=== PATIENT | male | born 1975 | race Caucasian/White ===

== ENCOUNTER 2017-06-19 13:01 | Emergency (ER) | payer OTHER ==
[~2017-06-19] VITALS: Ht 175.3 cm; Wt 99.0 kg
[~2017-06-19 13:01] MED LIST: ACT/30 PO; ATOR-24 PO; ENAL10TA88 PO; GABA-112 PO; GLIP-199 PO; METF-383 PO; PANT40TA PO; VICODIN PO
[2017-06-19 13:08] VITALS: TEMP 37; Ht 175.3 cm; Wt 99.0 kg
[2017-06-19 14:01] VITALS: O2SAT 95
[2017-06-19] MEDS ORDERED: NVLG SQ (14:11)
[2017-06-19] MEDS ORDERED: GLC/500 PO (14:11)
[2017-06-19] MEDS ORDERED: SODIUM CHLORIDE 0.9% 1000ML 1,000 ML IV STA (14:28)
--- NOTE | 2017-06-19 14:39 | EMERGENCY ROOM VISIT NOTE ---
History Report prepared by Uzair: Lizzeth Viera Under the Supervision of: Dr. Eugenio Estrada M.D. First contact with patient: 14:26 Chief Complaint: STROKE SYMPTOMS Stated Complaint: POSSIBLE STROKE Nursing Triage Summary: Pt states, "Sun I had blurry vision for a little while and was lightheaded. When I called my family dr they said to come here. I was just to [facility] about 1.5 wks ago for chest tightness and they said everything was normal. I have burning in my left leg. Every now and again I do get blurred vision, but it's not like it was on Sun. I have a h/a. I feel more tired lately." Denies unilateral weakness. History of Present Illness The patient is a 41 year old male who presents to the Emergency Room with complaints of stroke symptoms beginning today. The patient states that 2 days ago he suddenly had blurry vision, but that it eventually went away. He reports having no symptoms yesterday but states that he was dizzy, light-headed and had blurry vision today. The patient states that he has never felt this way in the past. He reports that he is diabetic and that his sugar has been about 350 and that it was 259 before he checked in. The patient denies fevers, chills, diarrhea, and recent vomiting. He states that he has had some chest congestion from a sinus infection. The patient also reports having burning in his left leg because he has bursitis of his left hip and has not been able to get a shot in three years. The patient denies recent changes in medications. Source of History: patient Onset: today Position: other (global) Quality: other (stroke symptoms ) Associated Symptoms: + weakness (dizziness, light-headedness), No fevers, No chills, No vomiting, No diarrhea Note: additional symptoms: blurry vision Review of Systems See HPI for pertinent positives & negatives. A total of 10 systems reviewed and were otherwise negative. Past Medical & Surgical Medical Problems: (1) Diabetic peripheral neuropathy associated with type 2 diabetes mellitus (2) Dysesthesia (3) Loss of sensation Family History Cancer Diabetes mellitus FH: heart disease Hypertension Social History Smoking Status: Former Smoker Occupation Status: employed Current/Historical Medications Scheduled Atorvastatin (Lipitor), 40 MG PO QPM Enalapril (Vasotec), 10 MG PO DAILY Glipizide (Glipizide Er), 10 MG PO BID Insulin Aspart (Novolog), UNITS SQ UD Metformin Hcl (Glucophage), 500 MG PO TID Pantoprazole Sodium (Protonix), 40 MG PO DAILY Pioglitazone Hcl (Actos), 30 MG PO DAILY Allergies Coded Allergies: No Known Allergies (Unverified , 06/19/17) Physical Exam Vital Signs Date Time Temp Pulse Resp B/P (MAP) Pulse Ox O2 Delivery O2 Flow Rate FiO2 06/19/17 15:05 100 18 114/74 96 Room Air 06/19/17 14:43 103 112/75 105 131/82 116 115/76 06/19/17 14:01 95 Room Air 06/19/17 14:01 104 18 114/77 97 Room Air 06/19/17 13:58 112 06/19/17 13:08 37.0 117 20 118/73 97 Room Air Physical Exam GENERAL: Patient is in no acute distress. HEENT: No acute trauma, normocephalic atraumatic, mucous membranes dry, no nasal congestion, no scleral icterus. NECK: No stridor, no adenopathy, no meningismus, trachea is midline. LUNGS: Clear to auscultation bilaterally, no wheeze, no rhonchi, breath sounds equal. HEART: Without murmurs gallops or rubs, regular rate and rhythm. ABDOMEN: Soft, nontender, bowel sounds positive, no hernias, no peritonitis. EXTREMITIES: No cyanosis or edema, full range of motion of all the joints without pain or difficulty, no signs for acute trauma. NEUROLOGIC: Oriented x 3, no acute motor or sensory deficits, no focal weakness. No speech slur or facial droop. No pronator drift or cerebellar dysfunction. SKIN: No rash, no jaundice, no diaphoresis. Medical Decision & Procedures ER Provider Diagnostic Interpretation: Radiology results as stated below per my review and radiologist interpretation: HEAD WITHOUT CONTRAST (CT) CLINICAL HISTORY: 41 years-old Male presenting with EVALUATE ALTERED MENTAL STATUS/WEAKNESS. TECHNIQUE: Multidetector CT imaging of the head was performed without the use of intravenous contrast. IV contrast: None. A dose lowering technique was used consistent with the principles of ALARA (as low as reasonably achievable). COMPARISON: None. CT DOSE (mGy.cm): The estimated cumulative dose is 690.05 mGycm. FINDINGS: [employer] topogram: Unremarkable. Ventricles and sulci normal in size. Brain parenchyma normal in appearance with preserved nunez-white differentiation. No mass effect or midline shift. No hemorrhage or acute territorial infarct. No extra-axial fluid collection. Paranasal sinuses and mastoid air cells clear. Calvarium intact. IMPRESSION: 1. No acute intracranial abnormality. Electronically signed by: Remington Chan M.D. 06/19/2017 3:01 PM Dictated Date/Time: 06/19/2017 2:59 PM CHEST ONE VIEW PORTABLE CLINICAL HISTORY: EVALUATE ALTERED MENTAL STATUS/WEAKNESS mental status change COMPARISON STUDY: No previous studies for comparison. FINDINGS: The bones soft tissues and hemidiaphragms are normal. The cardiomediastinal silhouette is normal. The lungs are clear. The pulmonary vasculature is normal. IMPRESSION: Negative chest. The above report was generated using voice recognition software. It may contain grammatical, syntax or spelling errors. Electronically signed by: Ankur Sanches M.D. 06/19/2017 2:55 PM Dictated Date/Time: 06/19/2017 2:55 PM Laboratory Results 06/19/17 13:58 Red Blood Count 5.59, Mean Corpuscular Volume 81.0, Mean Corpuscular Hemoglobin 28.8, Mean Corpuscular Hemoglobin Concent 35.5, Mean Platelet Volume 11.9, Neutrophils (%) (Auto) 53.6, Lymphocytes (%) (Auto) 36.7, Monocytes (%) (Auto) 6.8, Eosinophils (%) (Auto) 1.6, Basophils (%) (Auto) 0.7, Neutrophils # (Auto) 3.72, Lymphocytes # (Auto) 2.54, Monocytes # (Auto) 0.47, Eosinophils # (Auto) 0.11, Basophils # (Auto) 0.05 06/19/17 13:58 Test 06/19/17 13:58 06/19/17 15:12 White Blood Count 6.93 K/uL (4.8-10.8) Red Blood Count 5.59 M/uL (4.7-6.1) Hemoglobin 16.1 g/dL (14.0-18.0) Hematocrit 45.3 % (42-52) Mean Corpuscular Volume 81.0 fL (80-100) Mean Corpuscular Hemoglobin 28.8 pg (25-34) Mean Corpuscular Hemoglobin Concent 35.5 g/dl (32-36) Platelet Count 199 K/uL (130-400) Mean Platelet Volume 11.9 fL (7.4-10.4) Neutrophils (%) (Auto) 53.6 % Lymphocytes (%) (Auto) 36.7 % Monocytes (%) (Auto) 6.8 % Eosinophils (%) (Auto) 1.6 % Basophils (%) (Auto) 0.7 % Neutrophils # (Auto) 3.72 K/uL (1.4-6.5) Lymphocytes # (Auto) 2.54 K/uL (1.2-3.4) Monocytes # (Auto) 0.47 K/uL (0.11-0.59) Eosinophils # (Auto) 0.11 K/uL (0-0.5) Basophils # (Auto) 0.05 K/uL (0-0.2) RDW Standard Deviation 36.9 fL (36.4-46.3) RDW Coefficient of Variation 12.5 % (11.5-14.5) Immature Granulocyte % (Auto) 0.6 % Immature Granulocyte # (Auto) 0.04 K/uL (0.00-0.02) Anion Gap 9.0 mmol/L (3-11) Est Creatinine Clear Calc Drug Dose 133.2 ml/min Estimated GFR () 124.9 Estimated GFR (Non- 107.8 BUN/Creatinine Ratio 17.6 (10-20) Calcium Level 8.9 mg/dl (8.5-10.1) Magnesium Level 1.8 mg/dl (1.8-2.4) Total Bilirubin 0.5 mg/dl (0.2-1) Aspartate Amino Transf (AST/SGOT) 23 U/L (15-37) Alanine Aminotransferase (ALT/SGPT) 55 U/L (12-78) Alkaline Phosphatase 97 U/L (45-117) Total Creatine Kinase 87 U/L (39-308) Troponin I < 0.015 ng/ml (0-0.045) Total Protein 7.4 gm/dl (6.4-8.2) Albumin 3.6 gm/dl (3.4-5.0) Globulin 3.8 gm/dl (2.5-4.0) Albumin/Globulin Ratio 0.9 (0.9-2) Thyroid Stimulating Hormone (TSH) 0.807 uIu/ml (0.300-4.500) Urine Color YELLOW Urine Appearance CLEAR (CLEAR) Urine pH 5.0 (4.5-7.5) Urine Specific [place] 1.033 (1.000-1.030) Urine Protein NEG (NEG) Urine Glucose (UA) 3+ (NEG) Urine Ketones TRACE (NEG) Urine Occult Blood NEG (NEG) Urine Nitrite NEG (NEG) Urine Bilirubin NEG (NEG) Urine Urobilinogen NEG (NEG) Urine Leukocyte Esterase NEG (NEG) Laboratory results reviewed by me. Medications Administered Medications (Trade) Dose Ordered Sig/Alexys Route Start Time Stop Time Status Last Admin Dose Admin Sodium Chloride 1,000 ml @ 999 mls/hr Q1H1M STAT IV 06/19/17 14:28 06/19/17 15:28 DC 06/19/17 14:52 999 MLS/HR ECG Indication: other (stroke symptoms ) Rate (beats per minute): 102 Rhythm: sinus tachycardia Findings: no acute ischemic change, no ectopy Change: Patient's electrocardiogram interpreted by me. ED Course 1427: The patient was evaluated in room A2. A complete history and physical exam was performed. 1428: Ordered Sodium Chloride 1,000 ml @ 999 mls/hr IV. 1520: The patient's orthostatic vital signs showed increase in heart rate consistent with dehydration. 1620: I reevaluated the patient. 1635: Reevaluated the patient. Discussed results and discharge instructions: He verbalized understanding and agreement. The patient is ready for discharge. Medical Decision The patient is a 41 year old male who presents to the ED with complaints of stroke symptoms. Differential diagnoses considered include dehydration, electrolyte imbalance, anemia, infection, stroke, vertigo, and thyroid disorder. There is no leukocytosis or concerning anemia. No significant electrolyte abnormality, kidney failure or hepatitis. The patient appears to be in a euthyroid state. EKG shows a mild sinus tachycardia, no acute ischemia. Cardiac enzyme testing 1 is not consistent with acute cardiac injury. Orthostatic vital signs showed an increase in the heart rate consistent with some dehydration. Chest film does not show pneumonia or pneumothorax. Brain CT shows no acute bleed or mass effect. Urinalysis does not show evidence for infection. The patient received 1 L of IV saline, his heart rate is improved, he is resting much more comfortably. In the room, his heart rate was in the 80s when I discussed his findings. I think the patient is likely feeling poorly from some dehydration. His blood sugars have been elevated lately and this may have led to some dehydration. There are no stroke findings by examination. The patient was reassured by his testing and feeling improved. He was discharged home, if worsening, he will return. Medication Reconcilliation Current Medication List: was personally reviewed by me Blood Pressure Screening Patient's blood pressure: Normal blood pressure Impression Primary Impression: Weakness Additional Impressions: Blurry vision Dehydration Scribe Attestation The scribe's documentation has been prepared under my direction and personally reviewed by me in its entirety. I confirm that the note above accurately reflects all work, treatment, procedures, and medical decision making performed by me. Departure Information Dispostion Home / Self-Care Referrals Martínez Brand M.D. (PCP) Tawanda BenitoD.O. Forms HOME CARE DOCUMENTATION FORM, IMPORTANT VISIT INFORMATION Patient Instructions My [facility] Additional Instructions stay well hydrated as discussed keep a better control of your blood sugars see mariana masters for a follow up this week call orthopedics for an appt for your bursitis return if worsening Stroke History Time Last Known Well 3 days ago Stroke t-PA Criteria Reviewed Does NOT meet criteria for t-PA Reason t-PA Not Given Treatment not indicated Problem Qualifiers
[2017-06-19 14:55] LABS: BASO % 0.7 %; BASO ABS # 0.05 K/uL (0-0.2); EOS % 1.6 %; EOS ABS # 0.11 K/uL (0-0.5); HEMATOCRIT 45.3 % (42-52); HEMOGLOBIN 16.1 g/dL (14.0-18.0); IG# 0.04 K/uL (0.00-0.02); LYMPH % 36.7 %; LYMPH ABS # 2.54 K/uL (1.2-3.4); MEAN CORPUSCULAR HEMOGLOBIN 28.8 pg (25-34); MEAN CORPUSCULAR HGB CONC 35.5 g/dl (32-36); MEAN PLATELET VOLUME 11.9 fL (7.4-10.4); MONO % 6.8 %; MONO ABS # 0.47 K/uL (0.11-0.59); NEUT % 53.6 %; NEUT ABS # 3.72 K/uL (1.4-6.5); PLATELET COUNT 199 K/uL (130-400); RED CELL DISTRIBUTION WIDTH CV 12.5 % (11.5-14.5); RED CELL DISTRIBUTION WIDTH SD 36.9 fL (36.4-46.3); WHITE BLOOD COUNT 6.93 K/uL (4.8-10.8)
--- NOTE | 2017-06-19 14:56 | DIAGNOSTIC IMAGING REPORT ---
CHEST ONE VIEW PORTABLE CLINICAL HISTORY: EVALUATE ALTERED MENTAL STATUS/WEAKNESS mental status change COMPARISON STUDY: No previous studies for comparison. FINDINGS: The bones soft tissues and hemidiaphragms are normal. The cardiomediastinal silhouette is normal. The lungs are clear. The pulmonary vasculature is normal. IMPRESSION: Negative chest. The above report was generated using voice recognition software. It may contain grammatical, syntax or spelling errors. Electronically signed by: Ankur Sanches M.D. 06/19/2017 2:55 PM Dictated Date/Time: 06/19/2017 2:55 PM
--- NOTE | 2017-06-19 15:02 | DIAGNOSTIC IMAGING REPORT ---
HEAD WITHOUT CONTRAST (CT) CLINICAL HISTORY: 41 years-old Male presenting with EVALUATE ALTERED MENTAL STATUS/WEAKNESS. TECHNIQUE: Multidetector CT imaging of the head was performed without the use of intravenous contrast. IV contrast: None. A dose lowering technique was used consistent with the principles of ALARA (as low as reasonably achievable). COMPARISON: None. CT DOSE (mGy.cm): The estimated cumulative dose is 690.05 mGycm. FINDINGS: Hammerer topogram: Unremarkable. Ventricles and sulci normal in size. Brain parenchyma normal in appearance with preserved nunez-white differentiation. No mass effect or midline shift. No hemorrhage or acute territorial infarct. No extra-axial fluid collection. Paranasal sinuses and mastoid air cells clear. Calvarium intact. IMPRESSION: 1. No acute intracranial abnormality. Electronically signed by: Remington Chan M.D. 06/19/2017 3:01 PM Dictated Date/Time: 06/19/2017 2:59 PM
[2017-06-19 15:05] VITALS: BP 114/74; PULSE 100; O2SAT 96
[2017-06-19 15:05] LABS: ALBUMIN 3.6 gm/dl (3.4-5.0); ALKALINE PHOSPHATASE 97 U/L (45-117); ALT/SGPT 55 U/L (12-78); BLOOD UREA NITROGEN 15 mg/dl (7-18); CALCIUM 8.9 mg/dl (8.5-10.1); CARBON DIOXIDE 23 mmol/L (21-32); CREATININE 0.83 mg/dl (0.60-1.40); GLUCOSE 226 mg/dl (70-99); TOTAL PROTEIN 7.4 gm/dl (6.4-8.2)
[2017-06-19 15:08] LABS: POTASSIUM 3.9 mmol/L (3.5-5.1); SODIUM 134 mmol/L (136-145)
[2017-06-19 15:17] LABS: AST/SGOT 23 U/L (15-37)
== END 2017-06-19 16:38 | disposition home or self-care (01) ==
LOC: C.EDB 13:03 → C.EDA 16:38
DX: E86.0 Dehydration (principal); R42 Dizziness and giddiness; H53.8 Other visual disturbances; R53.1 Weakness; E11.40 Type 2 diabetes mellitus with diabetic neuropathy, unspecified; Z79.4 Long term (current) use of insulin; Z79.899 Other long term (current) drug therapy

== ENCOUNTER 2017-12-21 20:27 | Emergency (ER) | payer OTHER ==
[~2017-12-21] VITALS: Ht 175.3 cm; Wt 95.0 kg
[~2017-12-21 20:27] MED LIST changes: -ACT/30 PO; -ATOR-24 PO; +GLC/500 PO; -GLIP-199 PO; -METF-383 PO; +NVLG SQ; -PANT40TA PO; -VICODIN PO
[2017-12-21 20:28] VITALS: TEMP 37.2; Ht 175.3 cm; Wt 95.0 kg
[2017-12-21] MEDS ORDERED: PANT40TA PO (20:42)
[2017-12-21] MEDS ORDERED: ATOR-24 PO (20:44)
[2017-12-21] MEDS ORDERED: SEPTRA DS HOME PACK 1 EA VIAL PO ONE (20:45)
[2017-12-21] MEDS ORDERED: CEPHALEXIN MONOHYDRATE 250 MG CAP PO ONE (20:45)
[2017-12-21] MEDS ORDERED: SULFAMETHOXAZOLE/TRIMETHOPRIM DS 800/160MG TAB PO ONE (20:45)
[2017-12-21] MEDS ORDERED: CEPHALEXIN 500MG HOME PACK 1 EA BTL PO ONE (20:45)
--- NOTE | 2017-12-21 21:23 | DIAGNOSTIC IMAGING REPORT ---
L FOOT MIN 3 VIEWS ROUTINE CLINICAL HISTORY: L plantar 1st MTP wound COMPARISON: None FINDINGS: Extensive vascular calcification is noted. Tarsometatarsal joints are intact. There is no acute fracture, radiopaque foreign body or evidence for osteomyelitis within the left foot by radiography. There may be soft tissue swelling at the level of the left first metatarsophalangeal joint. IMPRESSION: 1. No acute fracture, radiopaque foreign body or evidence for osteomyelitis within the left foot by radiography. 2. Extensive vascular calcification. Electronically signed by: Isaac Nieves M.D. 12/21/2017 9:22 PM Dictated Date/Time: 12/21/2017 9:20 PM
[2017-12-21] MEDS ORDERED: CEPH500C PO (22:40)
[2017-12-21] MEDS ORDERED: SULF800T23 PO (22:40)
--- NOTE | 2017-12-21 22:44 | EMERGENCY ROOM VISIT NOTE ---
ED Visit Note First contact with patient: 20:34 I did evaluate and examine this patient myself. I did guide management for the patient. I agree with the PA's assessment as discussed. Please see the PAs dictation for further details. I did independently review the x-rays. He has an infection to the left foot. He was placed on antibiotics and will follow closely with his doctor.
[2017-12-21 22:50] VITALS: BP 103/70; PULSE 96; O2SAT 96
--- NOTE | 2017-12-22 00:52 | EMERGENCY ROOM VISIT NOTE ---
History First contact with patient: 20:34 Chief Complaint: FOOT PAIN Stated Complaint: L FOOT PAIN, BLISTERS ON THE BOTTOM History of Present Illness The patient is a 42 year old male who presents to the Emergency Room with complaints of a blister on the bottom of his left foot. The patient reports that his son looked at it today and thought that it was turning green and red. The patient does have a history of diabetes. He denies any prior history of diabetic foot ulcers or infections. The patient cannot rule out the possibility of stepping on something. He does wear shoes around the house because of history of diabetes. He rates his discomfort a 7 out of 10 with weightbearing. He has not noticed any foot redness, swelling, red streaks or fever. Tetanus immunization is up-to-date. Review of Systems 10 system review was performed and was negative except for pertinent positives and negatives as indicated in history of present illness Past Medical/Surgical History Medical Problems: (1) Diabetic peripheral neuropathy associated with type 2 diabetes mellitus (2) Dysesthesia (3) Loss of sensation Family History Cancer Diabetes mellitus FH: heart disease Hypertension Social History Smoking Status: Never Smoker Alcohol Use: none Marital Status: single Housing Status: lives alone Occupation Status: employed Current/Historical Medications Scheduled Atorvastatin (Lipitor), 40 MG PO QPM Cephalexin Monohydrate (Keflex), 500 MG PO QID Enalapril (Vasotec), 10 MG PO DAILY Gabapentin (Neurontin), 1 CAP PO BID Insulin Aspart (Novolog), UNITS SQ UD Metformin Hcl (Glucophage), 500 MG PO TID Pantoprazole Sodium (Protonix), 40 MG PO DAILY Sulfa/Trimethoprim (Bactrim Ds 800MG/160MG), 1 TAB PO BID Physical Exam Vital Signs Date Time Temp Pulse Resp B/P (MAP) Pulse Ox O2 Delivery O2 Flow Rate FiO2 12/21/17 22:50 96 18 103/70 96 12/21/17 20:28 37.2 110 16 116/76 95 Room Air Physical Exam CONSTITUTIONAL: Healthy and well nourished. Alert and oriented X 3 with positive affect. Patient does not appear in any acute distress. HEENT: Normocephalic, atraumatic. Pupils equal, round and reactive. NECK: Full active range of motion without discomfort. MUSCULOSKELETAL: Examination of the left foot shows a draining wound over the plantar first MTP region. It is mildly tender to palpation. No obvious foreign body is appreciated. There is some mild purulent drainage. Patient does not have any discomfort with passive range of motion of the first MTP joint. No proximal lymphangitic streaking. Pedal pulses are intact. INTEGUMENTARY: No rash or other significant dermatologic conditions noted. NEUROLOGIC: Patient has decreased sensation of the right foot. Medical Decision & Procedures ER Provider Diagnostic Interpretation: My interpretation of left foot x-ray does not show any obvious radiopaque foreign bodies, fracture or bony lysis. Radiologist report is as follows: L FOOT MIN 3 VIEWS ROUTINE CLINICAL HISTORY: L plantar 1st MTP wound COMPARISON: None FINDINGS: Extensive vascular calcification is noted. Tarsometatarsal joints are intact. There is no acute fracture, radiopaque foreign body or evidence for osteomyelitis within the left foot by radiography. There may be soft tissue swelling at the level of the left first metatarsophalangeal joint. IMPRESSION: 1. No acute fracture, radiopaque foreign body or evidence for osteomyelitis within the left foot by radiography. 2. Extensive vascular calcification. Medications Administered Medications (Trade) Dose Ordered Sig/Alexys Route Start Time Stop Time Status Last Admin Dose Admin Cephalexin Monohydrate (Keflex Cap) 500 mg NOW ONCE PO 12/21/17 20:45 12/21/17 20:46 DC 12/21/17 21:22 500 MG Cephalexin Monohydrate (Keflex 500MG Home Pack) 1 homepack NOW ONCE PO 12/21/17 20:45 12/21/17 20:46 DC 12/21/17 21:48 1 HOMEPACK Trimethoprim/ Sulfamethoxazole (Sulfameth/ Trimeth Ds 800/ 160MG Home Pack) 1 homepack UD ONCE PO 12/21/17 20:45 12/21/17 20:46 DC 12/21/17 21:48 1 HOMEPACK Trimethoprim/ Sulfamethoxazole (Septra Ds 800/ 160MG Tab) 1 tab NOW ONCE PO 12/21/17 20:45 12/21/17 20:46 DC 12/21/17 21:22 1 TAB ED Course Patient history and physical exam were performed. Nurse's notes were reviewed. Vital signs were reviewed and were normal. The patient refused any analgesics on initial exam. Wound cultures were collected from the draining wound. The wound was then cleansed and covered with a bacitracin dressing. The patient reports that he does have crutches at home. X-rays of the left foot were normal. The patient will be provided prescriptions for Keflex and Bactrim DS. He was encouraged to limit weightbearing on the foot until the infection improves. I did encourage him to follow-up with his PCP for recheck in 2-3 days, returning to the emergency department over the weekend for any progressively worsening infection. The patient was happy with plan of care, voiced understanding of all discharge instructions, and denied any significant pain at the conclusion of my exam. The patient was also seen and examined by Dr. Majano, ED attending physician, who agrees with workup and plan of care. Medical Decision Medication Reconcilliation Current Medication List: was personally reviewed by mt Blood Pressure Screening Patient's blood pressure: Normal blood pressure Impression Primary Impression: Cellulitis of left foot Additional Impression: Diabetic neuropathy Departure Information Prescriptions Sulfa/Trimethoprim (Bactrim Ds 800MG/160MG) Tab 1 TAB PO BID for 7 Days, #14 TAB Prov: Heladio Martin PA 12/21/17 Cephalexin Monohydrate (Keflex) 500 Mg Cap 500 MG PO QID for 7 Days, #28 CAP Prov: Heladio Martin PA 12/21/17 Referrals Martínez Brand M.D. (PCP) Patient Instructions My [facility] Problem Qualifiers Additional Impression: Diabetic neuropathy Diabetes mellitus type: type 2 Diabetes mellitus complication detail: diabetic polyneuropathy Qualified Codes: E11.42 - Type 2 diabetes mellitus with diabetic polyneuropathy
== END 2017-12-21 22:50 | disposition home or self-care (01) ==
LOC: C.EDB 20:28 → C.EDD 22:50
DX: L03.116 Cellulitis of left lower limb (principal); E11.42 Type 2 diabetes mellitus with diabetic polyneuropathy; Z79.4 Long term (current) use of insulin

== ENCOUNTER 2024-10-01 01:09 | Inpatient (IN) ==
--- NOTE | 2024-10-01 01:20 | Emergency Department Note ---
History of Present Illness General Chief complaint: Chest Pain Stated complaint: CHEST PAIN, DIAPHORETIC, NAUSEA History of Present Illness This 49-year-old gentleman with a history of COPD and diabetes presents the ER for chest pain. He said intermittent pain all day but more constant tonight. He took nitroglycerin which made the pain worse. He is on Xarelto for unclear etiology. No history of DVT, PE or A-fib. Patient denies fever, chills, cough, congestion, injury to the area, leg pain or swelling, abdominal pain, radiating pain. EMS gave aspirin. Home Medications Medication Instructions Recorded Confirmed Type albuterol sulfate 90 mcg/actuation 2 puff inhalation Q4H PRN 10/01/24 10/01/24 History aerosol inhaler Shortness Of Breath Or Wheezing aspirin 81 mg chewable tablet 81 mg PO HS 10/01/24 10/01/24 History atorvastatin 40 mg tablet 40 mg PO HS 10/01/24 10/01/24 History bupropion HCl 150 mg tablet,12 hr 150 mg PO BID 10/01/24 10/01/24 History sustained-release cholecalciferol (vitamin D3) 1,250 50,000 unit PO WK 10/01/24 10/01/24 History mcg (50,000 unit) capsule cholecalciferol (vitamin D3) 50 250 mcg PO DAILY 10/01/24 10/01/24 History mcg (2,000 unit) capsule (Vitamin D3) metoprolol succinate 25 mg 25 mg PO DAILY 10/01/24 10/01/24 History tablet,extended release 24 hr nitroglycerin 0.4 mg sublingual 0.4 mg sublingual DIRECTED PRN 10/01/24 10/01/24 History tablet (Nitrostat) Chest Pain olmesartan 20 mg tablet 20 mg PO DAILY 10/01/24 10/01/24 History pantoprazole 40 mg tablet,delayed 40 mg PO DAILY 10/01/24 10/01/24 History release rivaroxaban 2.5 mg tablet (Xarelto) 2.5 mg PO BID 10/01/24 10/01/24 History tirzepatide 10 mg/0.5 mL 10 mg subcut WK 10/01/24 10/01/24 History subcutaneous pen injector (Kinsey) Allergies Allergy/AdvReac Type Severity Reaction Status Date / Time No Known Allergies Allergy Verified 10/01/24 01:42 Past Med/Surg History Problem List (Updated 10/01/24 @ 02:06 by Olya Perea PA-C) Acute hyponatremia (Acute) Atypical chest pain (Acute) PVD (peripheral vascular disease) Personal history of diabetic foot ulcer Diabetic peripheral neuropathy associated with type 2 diabetes mellitus Dysesthesia Social History Smoking Status: Never smoker Preferred Language: Bulgarian Review of Systems A total of 10 systems reviewed and were otherwise negative Physical Exam Vital Signs Vital Signs - 24 hr 10/01/24 01:18 10/01/24 01:21 10/01/24 01:27 Temperature 36.6 C Temperature Source Oral Pulse Rate 82 85 84 Pulse Rate from SpO2 Sensor Pulse Rhythm Regular Regular Pulse Strength Normal Respiratory Rate 20 20 Respiratory Effort / Characteristics Non-Labored Spontaneous Respiratory Depth Normal Respiratory Pattern Regular Blood Pressure 142/87 H Blood Pressure Mean 105 Blood Pressure Position Lying Pulse Oximetry 98 98 Oxygen Delivery Method Room Air Room Air Sepsis Recent Fever Within 48 Hours No Sepsis New/Unexplained Change in Mental Status No Sepsis Action Taken by Nursing No Action Required 10/01/24 02:00 Temperature Temperature Source Pulse Rate 82 Pulse Rate from SpO2 Sensor 82 Pulse Rhythm Pulse Strength Respiratory Rate 13 Respiratory Effort / Characteristics Respiratory Depth Respiratory Pattern Blood Pressure 138/82 Blood Pressure Mean 100 Blood Pressure Position Pulse Oximetry 98 Oxygen Delivery Method Sepsis Recent Fever Within 48 Hours Sepsis New/Unexplained Change in Mental Status Sepsis Action Taken by Nursing VITALS: Vitals are noted on the nurse's note and reviewed by myself. Vital signs stable. GENERAL: Pleasant gentleman, in no acute distress, nondiaphoretic, well- developed well-nourished. SKIN: Capillary reflex less than 2 seconds. HEENT: Normocephalic. PERRLA. EOMI. Nares patent. Mucous membranes moist. Neck is supple without nuchal rigidity. HEART: Regular rate and rhythm LUNGS: Clear to auscultation bilaterally without wheezes, rales or rhonchi. No retractions or accessory muscle use. ABDOMEN: Positive bowel sounds x 4. Normal tympanic percussion. Soft, nontender, without masses or organomegaly. Gray sign negative. No guarding or rebound tenderness. no CVA tenderness MUSCULOSKELETAL: No gross musculoskeletal defects. NEURO: Patient was alert and oriented to person place and time. No focal neurological deficits. Course Administered Medications Discontinued Medications Acetaminophen (Ofirmev) 1,000 mg in 100 mls @ 400 mls/hr IV NOW STA Stop: 10/01/24 01:52 Last Infusion: 10/01/24 02:03 Dose: Infused Documented By: Admin: 10/01/24 01:44 Dose: 400 mls/hr Documented By: WENDI Medical Decision Making Medical Records Attestation: I reviewed the patient's medical records. Home Medications Current Medication List: was personally reviewed by me Laboratory Data Attestation: I reviewed the patient's lab results. 10/01/24 01:15 10/01/24 01:15 Lab Results 10/01/24 10/01/24 10/01/24 Range/Units 01:10 01:15 01:18 WBC 10.85 H (4.8-10.8) K/ul RBC 4.55 L (4.70-6.10) M/uL Hgb 13.0 L (14.0-18.0) g/dl POC Hgb 13.3 L (14.0-18.0) g/dl Hct 35.5 L (42.0-52.0) % POC Hct 39 L (42-52) % MCV 78.0 L (80.0-100.0) fL MCH 28.6 (25.0-34.0) pg MCHC 36.6 H (32.0-36.0) g/dL RDW Std Deviation 32.9 L (36.4-46.3) fL RDW Coeff of Georgie 11.7 (11.5-14.5) % Plt Count 288 (130-400) K/uL MPV 10.2 (9.4-12.4) fL Immature Gran % (Auto) 0.5 % Neut % (Auto) 61.2 % Lymph % (Auto) 27.6 % [place] % (Auto) 8.0 % Eos % (Auto) 1.9 % Baso % (Auto) 0.8 % Neut # (Auto) 6.64 H (1.40-6.50) K/uL Lymph # (Auto) 2.99 (1.20-3.40) K/uL [place] # (Auto) 0.87 H (0.11-0.59) K/uL Eos # (Auto) 0.21 (0.00-0.50) K/uL Baso # (Auto) 0.09 (0.00-0.20) K/uL Immature Gran # (Auto) 0.05 (0.01-0.20) K/uL POC Sodium 125 L (135-144) mmol/L Sodium 125 L (136-145) mmol/L POC Potassium 4.2 (3.3-5.0) mmol/L Potassium 4.2 (3.5-5.1) mmol/L POC Chloride 91 L (101-112) mmol/L Chloride 94 L (98-107) mmol/L Carbon Dioxide 22 (21-32) mmol/L POC Total CO2 20 L (24-31) mmol/L Anion Gap 9 (3-11) POC Anion Gap 19.0 (16-25) mmol/L POC BUN 16 (7-18) mg/dl BUN 17 (6-23) mg/dl Creatinine 1.13 (0.6-1.4) mg/dl POC Creatinine 1.2 (0.6-1.3) mg/dl Est Cr Clr Drug Dosing 85.0 ml/min eGFR 78.69 BUN/Creatinine Ratio 15.0 (10-20) Glucose 118 H (70-99(Fasting)) mg/dl POC Glucose (other) 116 H (70-99) mg/dl Osmolality 258 L (280-300) mOsm/kg Calcium 9.3 (8.6-10.3) mg/dl POC Ioniz Calcium Donny 1.18 (1.12-1.32) mmol/l Total Bilirubin 0.7 (0.2-1.0) mg/dl AST 20 (13-39) U/L ALT 19 (7-52) U/L Alkaline Phosphatase 90 (34-104) U/L Troponin I High Sens < 2.3 (0-20) pg/ml Total Protein 7.3 (6.0-8.3) gm/dl Albumin 4.2 (3.4-5.0) gm/dl Globulin 3.1 (2.5-4.0) gm/dl Albumin/Globulin Ratio 1.4 (0.9-2) Lipase 48 (11-82) U/L Imaging Data Attestation: I personally reviewed and interpreted this imaging study as follows: MDM Narrative Prior records/ancillary studies reviewed. Triage Nursing notes reviewed. Additional history obtained from EMS. The patient's history was concerning for chest pain. Differential diagnosis: Etiologies such as cardiac ischemia, aortic dissection, pulmonary embolism, pneumonia, pneumothorax, musculoskeletal, infections, pericarditis, myocarditis, esophageal rupture, gastrointestinal, as well as others were entertained. Physical examination: As above. ER treatment provided: An order was placed for continuous cardiac monitoring. The monitor shows a rate of 60-100 with a sinus rhythm per my interpretation. Fluids On reassessment the patient felt better. Diagnostic interpretation by me: #1 the electrocardiogram was negative for pathologic change. Ordered for chest pain EKG: Poor baseline, normal sinus, no acute ST-T wave changes. Impression normal sinus rhythm poor baseline independently interpreted by myself I think arrhythmia is unlikely. EKG shows normal sinus rhythm with no interval abnormalities such as QT prolongation or WPW. There are no findings to suggest Brugada syndrome. Cardiac monitoring in the emergency department reveals no tachycardic or bradycardic dysrhythmia. Hypertrophic cardiomyopathy was considered but there are no clear historical elements pointing toward this. EKG is not suggestive. The QRS voltage is not extremely large and there are no suggestive Q waves. #2 EKG ordered for chest pain EKG: Normal sinus, normal intervals, no acute ST-T wave changes. Impression normal sinus rhythm independently interpreted by myself The labs Independently Interpreted by myself revealed hyponatremia and osmolarity levels were ordered Negative troponin Imaging studies: Chest x-ray with no acute consolidation, pneumothorax or free air per my independent interpretation HEART SCORE: Hx: high/mod/low suspicion: 1 ECG: ST depression/nonspecific changes/normal: 0 Age: Greater than 65/45-64/less than 45: 1 Risk factors: (Hypertension, hyperlipidemia, diabetes, coronary disease, tobacco use, cocaine use): 1 Troponin: Greater than 2 times normal limits/1-2 times normal limits/normal: 0 Total: 3 Consultation: A consultation was placed with the hospitalist. The case was discussed and diagnostics were reviewed. The patient was evaluated in the ER for further treatment. Exam and history seem consistent with chest pain with low sodium. Osmolarity levels were sent. 2 EKGs were negative. First troponin is negative. Patient is on Xarelto so unlikely for PE. Medicine was consulted case discussed. He will be evaluated for admission. By the evaluation outlined above emergent etiologies such as cardiac ischemia, aortic dissection, pulmonary embolism, pneumonia, pneumothorax, infections, pericarditis, myocarditis, gastrointestinal, as well as others were deemed relatively unlikely. The pt informed about the findings as listed above. All questions were answered and pleased with the treatment. The chart was completed utilizing [employer] Speech voice recognition software. Grammatical errors, random word insertions, pronoun errors, and incomplete sentences are an occassional consequence of this system due to software limitations, ambient noise, and hardware issues. Any formal questions or concerns about the content, text, or information contained within the body of this dictation should be directly addressed to the physician medical staff assistant for clarification. Impression & Plan Atypical chest pain, Acute hyponatremia Discharge Plan Visit Data Chief Complaint: Chest Pain Stated Complaint: CHEST PAIN, DIAPHORETIC, NAUSEA ED Provider: Tresa Gutierrez ED Midlevel Provider: Olya Perea Discharge Problem: Atypical chest pain, Acute hyponatremia Patient Disposition: Being Evaluated by Hospitalist Condition: Good Forms Stand Alone Forms: My [facility] Prescriptions Prescriptions: No Action atorvastatin 40 mg tablet 40 mg PO HS bupropion HCl 150 mg tablet sustained-release 12 hr 150 mg PO BID pantoprazole 40 mg tablet,delayed release (DR/EC) 40 mg PO DAILY nitroglycerin [Nitrostat] 0.4 mg Tablet, Sublingual 0.4 mg sublingual DIRECTED PRN (Reason: Chest Pain) aspirin 81 mg Tablet,Chewable 81 mg PO HS metoprolol succinate 25 mg tablet extended release 24 hr 25 mg PO DAILY albuterol sulfate 90 mcg/actuation HFA aerosol inhaler 2 puff INHALATION Q4H PRN (Reason: Shortness Of Breath Or Wheezing) olmesartan 20 mg tablet 20 mg PO DAILY cholecalciferol (vitamin D3) 1,250 mcg (50,000 unit) capsule 50,000 unit PO WK Rx Instructions: SUNDAYS cholecalciferol (vitamin D3) [Vitamin D3] 50 mcg (2,000 unit) Capsule 250 mcg PO DAILY rivaroxaban [Xarelto] 2.5 mg tablet 2.5 mg PO BID Mounjaro 10 mg/0.5 mL pen injector 10 mg SUBCUT WK Rx Instructions: SUNDAYS Referrals Referrals: Jackie Huang PA-C [Primary Care Provider] -
[2024-10-01 01:29] LABS: iSTAT Creatinine 1.2 mg/dl (0.6-1.3); iSTAT Hemoglobin 13.3 g/dl (14.0-18.0); iSTAT Ionized Calcium 1.18 mmol/l (1.12-1.32); iSTAT Potassium 4.2 mmol/L (3.3-5.0)
[2024-10-01 01:33] LABS: Basophils # (auto) 0.09 K/uL (0.00-0.20); Basophils % (auto) 0.8 %; Eosinophils # (auto) 0.21 K/uL (0.00-0.50); Eosinophils % (auto) 1.9 %; Hematocrit (blood only) 35.5 % (42.0-52.0); Immature Granulocytes # (auto) 0.05 K/uL (0.01-0.20); Immature Granulocytes % (auto) 0.5 %; Lymphocytes # (auto) 2.99 K/uL (1.20-3.40); Lymphocytes % (auto) 27.6 %; Mean Corpuscular Hemoglobin 28.6 pg (25.0-34.0); Mean Corpuscular Hgb Conc 36.6 g/dL (32.0-36.0); Mean Platelet Volume 10.2 fL (9.4-12.4); Monocytes # (auto) 0.87 K/uL (0.11-0.59); Neutrophils # (auto) 6.64 K/uL (1.40-6.50); Neutrophils % (auto) 61.2 %; Platelet Count 288 K/uL (130-400); RDW Coefficient of Variation 11.7 % (11.5-14.5); RDW Standard Deviation 32.9 fL (36.4-46.3); Red Blood Count 4.55 M/uL (4.70-6.10); White Blood Count 10.85 K/ul (4.8-10.8)
[2024-10-01] MEDS: ACETAMINOPHEN 1,000 MG/100 ML VIAL IV STA (01:44)
[2024-10-01 01:49] LABS: Alanine Aminotransferase 19 U/L (7-52); Albumin Globulin Ratio 1.4 (0.9-2); Albumin Level 4.2 gm/dl (3.4-5.0); Alkaline Phosphatase 90 U/L (34-104); Anion Gap 9 (3-11); Aspartate Aminotransferase 20 U/L (13-39); Bilirubin,Total 0.7 mg/dl (0.2-1.0); Blood Urea Nitrogen 17 mg/dl (6-23); Calcium 9.3 mg/dl (8.6-10.3); Carbon Dioxide 22 mmol/L (21-32); Chloride 94 mmol/L (98-107); Globulin 3.1 gm/dl (2.5-4.0); Glucose 118 mg/dl (70-99(Fasting)); Lipase 48 U/L (11-82); Potassium 4.2 mmol/L (3.5-5.1); Sodium 125 mmol/L (136-145); Total Protein 7.3 gm/dl (6.0-8.3)
[2024-10-01 01:56] LABS: Troponin I High Sensitivity < 2.3 pg/ml (0-20)
[2024-10-01] MEDS: SODIUM CHLORIDE 0.9% 1,000 ML IV ONE (02:11)
[2024-10-01] MEDS ORDERED: ACETAMINOPHEN 325 MG TAB PO PRN (02:17)
[2024-10-01] MEDS ORDERED: oxyCODONE HCL IR 5 MG TAB (IMMEDIATE RELEASE) PO PRN (02:17)
--- NOTE | 2024-10-01 02:32 | XRay Report ---
EXAM: XR chest 1V portable CLINICAL HISTORY: Chest pain, nonspecific TECHNIQUE: An X-ray image of the chest is obtained in AP projection. COMPARISON: No prior studies are available for comparison. FINDINGS: Pulmonary Parenchyma: Lungs are clear bilaterally. No evidence of consolidation, collapse, or focal opacities. No pulmonary nodules are identified. No evidence of pleural effusion or pleural thickening. Heart and Mediastinum: Heart size and shape are normal. No mediastinal widening or masses. No hilar or mediastinal lymphadenopathy. Bony Thorax: Bony thorax appears intact without fractures or deformities. Soft Tissues: Chest leads seen. Soft tissues overlying the chest wall are unremarkable. IMPRESSION: Normal chest X-ray. No acute cardiopulmonary abnormalities are identified. Electronically signed by Damaso Guerrero 10-01-2024 02:31 AM
[2024-10-01 02:41] LABS: Magnesium 1.4 mg/dl (1.7-2.4)
[2024-10-01 02:45] LABS: Thyroid Stimulating Hormone 3.853 uIu/ml (0.300-4.500)
--- NOTE | 2024-10-01 02:52 | Emergency Department Note ---
ED Visit Note I was consulted by the Advanced Practice Provider. I approved the management plan and take responsibility for the patient management. This includes the aspects of: -History/Physical -MDM -I independently interpreted the following studies:Studies and results .
--- NOTE | 2024-10-01 03:02 | History & Physical Report ---
Date of Service October 01, 2024 Assessment & Plan (1) Chest pain: Plan: Chest pain Possible unstable angina given nitroglycerin relief hx PVD status post surgery on Xarelto Hypoosmolar hyponatremia possibly from polydipsia New onset anemia, possibly dilutional from hyponatremia, FOBT done at the ER was negative hypertension, stable hyperlipidemia, on statin Rx DM2 on Mounjaro, well-controlled as of outpatient hemoglobin A1c of 5.1 2022 Hypomagnesemia Admit to PCU Continue aspirin, beta-viktor, statin Rx Follow troponin TTE, Cardiology consult re: chest pain N.p.o. in anticipation of ischemic workup Hold Xarelto until patient seen by Cardiology Hyponatremia workup, may need fluid restriction if workup consistent with polydipsia Recheck serum sodium after initial fluid bolus administered at the ER Replace electrolytes ISS BG goal 110-140, update hemoglobin A1c DVT prophylaxis. Xarelto if okay with cardiology Full code Text document was generated using [employer] voice recognition software. It may contain grammatical or spelling errors. Kindly contact undersigned for clarification of any documentation item in question. History of Present Illness Chief Complaint: Chest pain Primary Care Provider: Scotty Huang MD History obtained from patient and records. Medical history significant for PVD status post surgery on Xarelto, hypertension, hyperlipidemia, DM2 on Mounjaro, urolithiasis, colonic polyps, mood disorder. Patient experienced substernal pain yesterday with some shortness of breath. Nonpleuritic as per patient. Different from left-sided chest pain which he usually gets attributed to gas. Associated diaphoresis symptoms. No unusual cough symptoms. Some improvement of substernal tightness with nitro Rx at home. Patient compliant with home medications. No unusual stress. Denies abdominal pain, black/bloody stools, hematuria. Usual consumption of about 80 ounces of fluid every day as per patient. Medical History as above Surgical History : Knee surgery, cholecystectomy, vascular procedures, hand surgery Family History : DM, colon cancer Personal/Social history : Non-smoker, no EtOH intake, disabled Allergies Allergy/AdvReac Type Severity Reaction Status Date / Time No Known Allergies Allergy Verified 10/01/24 01:42 Home Medications Medication Instructions Recorded Confirmed Type albuterol sulfate 90 mcg/actuation 2 puff inhalation Q4H PRN 10/01/24 10/01/24 History aerosol inhaler Shortness Of Breath Or Wheezing aspirin 81 mg chewable tablet 81 mg PO HS 10/01/24 10/01/24 History atorvastatin 40 mg tablet 40 mg PO HS 10/01/24 10/01/24 History bupropion HCl 150 mg tablet,12 hr 150 mg PO BID 10/01/24 10/01/24 History sustained-release cholecalciferol (vitamin D3) 1,250 50,000 unit PO WK 10/01/24 10/01/24 History mcg (50,000 unit) capsule cholecalciferol (vitamin D3) 50 250 mcg PO DAILY 10/01/24 10/01/24 History mcg (2,000 unit) capsule (Vitamin D3) metoprolol succinate 25 mg 25 mg PO DAILY 10/01/24 10/01/24 History tablet,extended release 24 hr nitroglycerin 0.4 mg sublingual 0.4 mg sublingual DIRECTED PRN 10/01/24 10/01/24 History tablet (Nitrostat) Chest Pain olmesartan 20 mg tablet 20 mg PO DAILY 10/01/24 10/01/24 History pantoprazole 40 mg tablet,delayed 40 mg PO DAILY 10/01/24 10/01/24 History release rivaroxaban 2.5 mg tablet (Xarelto) 2.5 mg PO BID 10/01/24 10/01/24 History tirzepatide 10 mg/0.5 mL 10 mg subcut WK 10/01/24 10/01/24 History subcutaneous pen injector (Mounjaro) Past Med/Surg History Problem List (Updated 10/01/24 @ 02:51 by Olya Perea PA-C) Hypomagnesemia (Acute) Acute hyponatremia (Acute) Atypical chest pain (Acute) PVD (peripheral vascular disease) Personal history of diabetic foot ulcer Diabetic peripheral neuropathy associated with type 2 diabetes mellitus Dysesthesia Social History Smoking Status: Former smoker Hx Alcohol Use: No Hx Substance Use: No Preferred Language: Occitan Communication Ability: Effective Machine I Coremaker Required: No Beliefs That Will Affect Care: None Current Living Situation: Family and Significant Other Feels Safe at Home: Yes Safety Concerns: Feels Safe At This Time Assistive Devices Comment: reading glasses Review of Systems Review of Systems: As per HPI, all other systems reviewed and negative Physical Exam Physical Exam: GENERAL: Comfortable, pleasant, no respiratory distress SKIN: Pallor, warm HEENT: Pale palpebral conjunctivae, no ptosis, moist buccal mucosa NECK : Supple, no tenderness CHEST : CTA, no tenderness HEART : RRR, no obvious murmurs ABDOMEN: Some distention, nontender RECTAL : Intact sphincter, brown stool (FOBT negative) EXTREMITIES : No LE swelling/tenderness, palpable pulses, no other conspicuous deformities noted NEUROLOGIC : Coherent, no facial asymmetry, no other gross focality Results & Data Results & Data Vital Signs (Past 12 Hours) Vital Signs Temp Pulse Resp BP Pulse Ox O2 Del Method 10/01/24 02:30 80 15 129/77 98 10/01/24 02:00 82 13 138/82 98 10/01/24 01:27 84 20 98 Room Air 10/01/24 01:21 36.6 C 85 20 142/87 H 98 Room Air 10/01/24 01:18 82 Laboratory Results Laboratory Results WBC 10.85 K/ul (4.8-10.8) H 10/01/24 01:15 RBC 4.55 M/uL (4.70-6.10) L 10/01/24 01:15 Hgb 13.0 g/dl (14.0-18.0) L 10/01/24 01:15 POC Hgb 13.3 g/dl (14.0-18.0) L 10/01/24 01:18 Hct 35.5 % (42.0-52.0) L 10/01/24 01:15 POC Hct 39 % (42-52) L 10/01/24 01:18 MCV 78.0 fL (80.0-100.0) L 10/01/24 01:15 MCH 28.6 pg (25.0-34.0) 10/01/24 01:15 MCHC 36.6 g/dL (32.0-36.0) H 10/01/24 01:15 RDW Std Deviation 32.9 fL (36.4-46.3) L 10/01/24 01:15 RDW Coeff of Georgie 11.7 % (11.5-14.5) 10/01/24 01:15 Plt Count 288 K/uL (130-400) 10/01/24 01:15 MPV 10.2 fL (9.4-12.4) 10/01/24 01:15 Immature Gran % (Auto) 0.5 % 10/01/24 01:15 Neut % (Auto) 61.2 % 10/01/24 01:15 Lymph % (Auto) 27.6 % 10/01/24 01:15 [place] % (Auto) 8.0 % 10/01/24 01:15 Eos % (Auto) 1.9 % 10/01/24 01:15 Baso % (Auto) 0.8 % 10/01/24 01:15 Neut # (Auto) 6.64 K/uL (1.40-6.50) H 10/01/24 01:15 Lymph # (Auto) 2.99 K/uL (1.20-3.40) 10/01/24 01:15 [place] # (Auto) 0.87 K/uL (0.11-0.59) H 10/01/24 01:15 Eos # (Auto) 0.21 K/uL (0.00-0.50) 10/01/24 01:15 Baso # (Auto) 0.09 K/uL (0.00-0.20) 10/01/24 01:15 Immature Gran # (Auto) 0.05 K/uL (0.01-0.20) 10/01/24 01:15 POC Sodium 125 mmol/L (135-144) L 10/01/24 01:18 Sodium 125 mmol/L (136-145) L 10/01/24 01:15 POC Potassium 4.2 mmol/L (3.3-5.0) 10/01/24 01:18 Potassium 4.2 mmol/L (3.5-5.1) 10/01/24 01:15 POC Chloride 91 mmol/L (101-112) L 10/01/24 01:18 Chloride 94 mmol/L (98-107) L 10/01/24 01:15 Carbon Dioxide 22 mmol/L (21-32) 10/01/24 01:15 POC Total CO2 20 mmol/L (24-31) L 10/01/24 01:18 Anion Gap 9 (3-11) 10/01/24 01:15 POC Anion Gap 19.0 mmol/L (16-25) 10/01/24 01:18 POC BUN 16 mg/dl (7-18) 10/01/24 01:18 BUN 17 mg/dl (6-23) 10/01/24 01:15 Creatinine 1.13 mg/dl (0.6-1.4) 10/01/24 01:15 POC Creatinine 1.2 mg/dl (0.6-1.3) 10/01/24 01:18 Est Cr Clr Drug Dosing 85.0 ml/min 10/01/24 01:15 eGFR 78.69 10/01/24 01:15 BUN/Creatinine Ratio 15.0 (10-20) 10/01/24 01:15 Glucose 118 mg/dl (70-99(Fasting)) H 10/01/24 01:15 POC Glucose (other) 116 mg/dl (70-99) H 10/01/24 01:18 Osmolality 258 mOsm/kg (280-300) L 10/01/24 01:10 Calcium 9.3 mg/dl (8.6-10.3) 10/01/24 01:15 POC Ioniz Calcium Donny 1.18 mmol/l (1.12-1.32) 10/01/24 01:18 Magnesium 1.4 mg/dl (1.7-2.4) L 10/01/24 01:15 Total Bilirubin 0.7 mg/dl (0.2-1.0) 10/01/24 01:15 AST 20 U/L (13-39) 10/01/24 01:15 ALT 19 U/L (7-52) 10/01/24 01:15 Alkaline Phosphatase 90 U/L (34-104) 10/01/24 01:15 Troponin I High Sens < 2.3 pg/ml (0-20) 10/01/24 01:15 Total Protein 7.3 gm/dl (6.0-8.3) 10/01/24 01:15 Albumin 4.2 gm/dl (3.4-5.0) 10/01/24 01:15 Globulin 3.1 gm/dl (2.5-4.0) 10/01/24 01:15 Albumin/Globulin Ratio 1.4 (0.9-2) 10/01/24 01:15 Lipase 48 U/L (11-82) 10/01/24 01:15 TSH 3.853 uIu/ml (0.300-4.500) 10/01/24 01:15 Impressions Chest X-Ray 10/01/24 01:16 EXAM: XR chest 1V portable CLINICAL HISTORY: Chest pain, nonspecific TECHNIQUE: An X-ray image of the chest is obtained in AP projection. COMPARISON: No prior studies are available for comparison. FINDINGS: Pulmonary Parenchyma: Lungs are clear bilaterally. No evidence of consolidation, collapse, or focal opacities. No pulmonary nodules are identified. No evidence of pleural effusion or pleural thickening. Heart and Mediastinum: Heart size and shape are normal. No mediastinal widening or masses. No hilar or mediastinal lymphadenopathy. Bony Thorax: Bony thorax appears intact without fractures or deformities. Soft Tissues: Chest leads seen. Soft tissues overlying the chest wall are unremarkable. IMPRESSION: Normal chest X-ray. No acute cardiopulmonary abnormalities are identified. Electronically signed by Damaso Guerrero 10-01-2024 02:31 AM Diagnostic Findings EKG as per my interpretation :Rate 80, NSR, normal axis, no ischemia
[2024-10-01] MEDS ORDERED: LORazepam 0.5 MG TAB PO PRN (03:04)
[2024-10-01] MEDS ORDERED: PROMETHAZINE 6.25 MG/50.25 ML BAG IV PRN (03:04)
[2024-10-01] MEDS ORDERED: MoRPHine SULFATE 4 MG/ML 1 ML CARP\\VIAL IV PRN (03:04)
[2024-10-01] MEDS ORDERED: GLUCAGON FOR INJ 1 MG VIAL SQ PRN (03:05)
[2024-10-01] MEDS ORDERED: GLUCOSE 10 TAB/TUBE PO PRN (03:05)
[2024-10-01] MEDS ORDERED: DEXTROSE 50% 50 ML SYRINGE IV PRN (03:05)
[2024-10-01] MEDS ORDERED: GLUCOSE 40% GEL 15 GM TUBE PO PRN (03:05)
[2024-10-01] MEDS ORDERED: CARBOHYDRATES FOR HYPOGLYCEMIA PO PRN (03:05)
[2024-10-01] MEDS ORDERED: NITROGLYCERIN SL 0.4 MG/TAB TAB SL PRN (03:11)
[2024-10-01] MEDS: NITROGLYCERIN SL 0.4 MG/TAB TAB SL STA (03:13)
[2024-10-01] MEDS: MAGNESIUM SULFATE / D5W 1 GM/100 ML BAG IV SCH (03:13)
[2024-10-01 03:58] LABS: Appearance Urine Clear (Clear); Bilirubin Urine Negative (Negative); Blood Urine Negative (Negative); Color Urine Yellow; Glucose Urine UA Negative (Negative); Ketones Urine Negative (Negative); Leukocyte Esterase Urine Negative (Negative); Nitrite Urine Negative (Negative); Protein Urine Negative (Negative); Specific Gravity Urine 1.014 (1.000-1.030); Urobilinogen Urine Negative (Negative)
[2024-10-01 05:02] VITALS: O2SAT 98
[2024-10-01 05:38] LABS: Hematocrit (blood only) 33.3 % (42.0-52.0); Hemoglobin 12.3 g/dl (14.0-18.0); Reticulocyte % 1.69 % (0.50-2.00)
[2024-10-01] MEDS: INSULIN ASPART PER UNIT CHARGE SC SCH ×2 (05:49→11:54)
[2024-10-01 05:55] LABS: Anion Gap 8 (3-11); BUN Creatinine Ratio 15.2 (10-20); Blood Urea Nitrogen 16 mg/dl (6-23); Calcium 8.9 mg/dl (8.6-10.3); Carbon Dioxide 21 mmol/L (21-32); Chloride 94 mmol/L (98-107); Chol HDL Ratio 3.3 (0-5); Cholesterol 73 mg/dl (0-200); Creatinine Clr Calc Pharmacy 90.4 ml/min; Glucose 117 mg/dl (70-99(Fasting)); HDL Cholesterol 22 mg/dl; Iron 68 mcg/dl (35-175); LDL Cholesterol Calculated 29 mg/dl; Potassium 4.4 mmol/L (3.5-5.1); Sodium 123 mmol/L (136-145); Transferrin 228 mg/dl (200-360); Triglycerides 108 mg/dl (0-150); VLDL Cholesterol 22 mg/dl (0-30)
[2024-10-01 06:01] LABS: Troponin I High Sensitivity < 2.3 pg/ml (0-20)
[2024-10-01 06:09] LABS: Partial Thromboplastin Time 26 Seconds (21-31)
[2024-10-01 06:15] LABS: Ferritin 115.9 ng/ml (8-388)
[2024-10-01 06:20] LABS: Folate (Folic Acid),Ser orPlas 12.22 ng/ml (>5.38)
[2024-10-01 07:10] VITALS: RESP 16; TEMP 97.9
[2024-10-01 07:32] LABS: Estimated Average Glucose 114 mg/dl; Hemoglobin A1C 5.6 % (4.5-5.6)
[2024-10-01] MEDS: LOSARTAN POTASSIUM 50 MG TAB PO SCH (07:48)
[2024-10-01] MEDS: PANTOprazole 40 MG TAB PO SCH (07:49)
[2024-10-01] MEDS: buPROPion SR 150 MG TABCR PO SCH (07:49)
[2024-10-01] MEDS: SODIUM CHLORIDE 0.9% 1,000 ML IV SCH (07:52)
[2024-10-01] MEDS: METOPROLOL SUCC 25MG EXT REL TAB PO SCH (08:53)
[2024-10-01 09:32] LABS: C Reactive Protein < 0.50 mg/dl (0-0.5)
[2024-10-01 10:40] VITALS: PULSE 89
[2024-10-01] MEDS ORDERED: Nursing to Pharmacy Communication SCH (11:15)
[2024-10-01 11:52] LABS: BUN Creatinine Ratio 15.8 (10-20); Calcium 8.9 mg/dl (8.6-10.3); Potassium 4.4 mmol/L (3.5-5.1)
--- NOTE | 2024-10-01 12:43 | Communication Note ---
By CMS guidelines, a determination that the admission or continued stay is not medically necessary has been made by a member of the UR committee and a physician for this hospital stay, therefore a Code 44 will be completed and the Inpatient admission will be changed to outpatient. Date of Service: October 01, 2024
[2024-10-01 12:51] VITALS: BP 136/84
--- NOTE | 2024-10-01 14:37 | Electrocardiogram Report ---
Test Reason : Blood Pressure : */* mmHG Vent. Rate : 86 BPM Atrial Rate : 86 BPM P-R Int : 146 ms QRS Dur : 94 ms QT Int : 336 ms P-R-T Axes : 48 49 69 degrees QTcB Int : 402 ms Normal sinus rhythm Normal ECG When compared with ECG of 01-Oct-2024 01:49, (unconfirmed) No significant change was found Confirmed by Joe Barkley ([id number]) on 10/01/2024 2:36:57 PM Referred By: REFERRED SELF Confirmed By: Joe Barkley
--- NOTE | 2024-10-01 14:41 | Electrocardiogram Report ---
Test Reason : Blood Pressure : */* mmHG Vent. Rate : 82 BPM Atrial Rate : 82 BPM P-R Int : 178 ms QRS Dur : 90 ms QT Int : 356 ms P-R-T Axes : 69 50 79 degrees QTcB Int : 415 ms Normal sinus rhythm Normal ECG When compared with ECG of 27-Jul-2022 13:19, No significant change was found Confirmed by Joe Barkley ([id number]) on 10/01/2024 2:40:59 PM Referred By: REFERRED SELF Confirmed By: Joe Barkley
--- NOTE | 2024-10-01 14:42 | Electrocardiogram Report ---
Test Reason : Blood Pressure : */* mmHG Vent. Rate : 87 BPM Atrial Rate : 87 BPM P-R Int : 196 ms QRS Dur : 92 ms QT Int : 342 ms P-R-T Axes : 58 42 64 degrees QTcB Int : 411 ms Normal sinus rhythm Normal ECG When compared with ECG of 01-Oct-2024 05:46, (unconfirmed) No significant change was found Confirmed by Joe Barkley ([id number]) on 10/01/2024 2:42:18 PM Referred By: REFERRED SELF Confirmed By: Joe Barkley
--- NOTE | 2024-10-01 15:20 | Discharge Summary ---
Discharge Summary Date of Service October 01, 2024 Principal Dx & Hospital Course #1 = Principal Diagnosis (1) Chest pain: Chest pain Possible unstable angina given nitroglycerin relief hx PVD status post surgery on Xarelto Hypoosmolar hyponatremia possibly from polydipsia New onset anemia, possibly dilutional from hyponatremia, FOBT done at the ER was negative hypertension, stable hyperlipidemia, on statin Rx DM2 on Mounjaro, well-controlled as of outpatient hemoglobin A1c of 5.1 2022 Hypomagnesemia Admit to PCU Continue aspirin, beta-viktor, statin Rx Follow troponin TTE, Cardiology consult re: chest pain N.p.o. in anticipation of ischemic workup Hold Xarelto until patient seen by Cardiology Hyponatremia workup, may need fluid restriction if workup consistent with polydipsia Recheck serum sodium after initial fluid bolus administered at the ER Replace electrolytes ISS BG goal 110-140, update hemoglobin A1c DVT prophylaxis. Xarelto if okay with cardiology Full code Text document was generated using [employer] voice recognition software. It may contain grammatical or spelling errors. Kindly contact undersigned for clarification of any documentation item in question. Notes For Next Care Provider 49 yo male with pmhx of PVD status post surgery on Xarelto, hypertension, hyperlipidemia, DM2 on Mounjaro, urolithiasis, colonic polyps, mood disorder who presents for chest pain. On medicine, troponins negative x3. Echo revealed trace pericardial effusions otherwise unremarkable. Patient had recent viral illness. ESR unremarkable. Reproducible chest pain, mild IA depressions, and pain with deep breaths favors pericarditis. On 10/01/2024 patient medically stable for discharge home. Patient understands bleeding risks associated with being on significant blood thinners, accepts risks. To do: [ ] f/u on stoping ibuprofen and restarting aspirin [ ] held aspirin while on ibuprofen/colchicine Medication Changes From Visit -held aspirin for 2 weeks, 2 weeks of colchicine/ibuprofen, titrate down to colchcine daily for 1 week Admission HPI Per Admitting Provider History obtained from patient and records. Medical history significant for PVD status post surgery on Xarelto, hypertension, hyperlipidemia, DM2 on Mounjaro, urolithiasis, colonic polyps, mood disorder. Patient experienced substernal pain yesterday with some shortness of breath. Nonpleuritic as per patient. Different from left-sided chest pain which he usually gets attributed to gas. Associated diaphoresis symptoms. No unusual cough symptoms. Some improvement of substernal tightness with nitro Rx at home. Patient compliant with home medications. No unusual stress. Denies abdominal pain, black/bloody stools, hematuria. Usual consumption of about 80 ounces of fluid every day as per patient. Medical History as above Surgical History : Knee surgery, cholecystectomy, vascular procedures, hand surgery Family History : DM, colon cancer Personal/Social history : Non-smoker, no EtOH intake, disabled Discharge Exam Gen: A&O 3 NAD HEENT: NCAT, EOMI, not icteric. External ears normal. No rhinorrhea. Moist mucous membranes. Neck: Supple, full range of motion, no observable masses, No meningeal sign. Lungs: No Respiratory distress. CV: RRR, no edema. Abdomen: Soft, nondistended, No rebound tenderness. MSK: No joint swelling, no redness. Reproducible chest pain to palpation Skin: No rashes, petechiae, lesions. Normal color per patient. Neuro: Normal Gait, Grossly intact. Psych: Appropriate for situation. Updated Medication List Medication Instructions Recorded Confirmed Type albuterol sulfate 90 mcg/actuation 2 puff inhalation Q4H PRN 10/01/24 10/01/24 History aerosol inhaler Shortness Of Breath Or Wheezing aspirin 81 mg chewable tablet 81 mg PO HS 10/01/24 10/01/24 History atorvastatin 40 mg tablet 40 mg PO HS 10/01/24 10/01/24 History bupropion HCl 150 mg tablet,12 hr 150 mg PO BID 10/01/24 10/01/24 History sustained-release cholecalciferol (vitamin D3) 1,250 50,000 unit PO WK 10/01/24 10/01/24 History mcg (50,000 unit) capsule cholecalciferol (vitamin D3) 50 250 mcg PO DAILY 10/01/24 10/01/24 History mcg (2,000 unit) capsule (Vitamin D3) colchicine 0.6 mg capsule 0.6 mg PO BID 28 days #56 caps 10/01/24 Rx ibuprofen 600 mg tablet 600 mg PO Q12 14 days #28 tabs 10/01/24 Rx metoprolol succinate 25 mg 25 mg PO DAILY 10/01/24 10/01/24 History tablet,extended release 24 hr nitroglycerin 0.4 mg sublingual 0.4 mg sublingual DIRECTED PRN 10/01/24 10/01/24 History tablet (Nitrostat) Chest Pain olmesartan 20 mg tablet 20 mg PO DAILY 10/01/24 10/01/24 History pantoprazole 40 mg tablet,delayed 40 mg PO BID 14 days #28 tabs 10/01/24 Rx release rivaroxaban 2.5 mg tablet (Xarelto) 2.5 mg PO BID 10/01/24 10/01/24 History tirzepatide 10 mg/0.5 mL 10 mg subcut WK 10/01/24 10/01/24 History subcutaneous pen injector (Mounjaro) Hospital Stay Data Consultations 10/01/24 02:05 ED Decision to Admit Stat Pending Results Patient Have Any Pending Studies at Discharge: No Discharge Instructions Given to Patient (Per Discharging Provider) 1. Please take medications as prescribed. 2. Please follow up with PCP and cardiology. Total Time Total Time Spent Total Time Spent (In Minutes): I spent a total of 35 minutes in direct patient care, including [id number] time with the patient and/or family, reviewing medical records, ordering and reviewing diagnostic tests, and coordinating care with other healthcare providers. This time includes: history taking, physical examination, medical decision making, counseling, ECG interpretation, imaging interpretation, lab interpretation, orders, and education, excluding time spent in the performance of separately billed services.
[2024-10-01] MEDS ORDERED: ASPIRIN 81 MG ECTAB PO SCH (21:00)
[2024-10-01] MEDS ORDERED: ATORVASTATIN 40 MG TAB PO SCH (21:00)
== END 2024-10-01 13:53 | disposition home or self-care (01) | DRG 311 ==
LOC: ED 01:09 → 2S 03:03 → INTOOBSV 03:03 → 2S 04:06